=== PATIENT | male | born 1950 | race Caucasian/White ===

== ENCOUNTER 2017-01-12 12:47 | Emergency (ER) | payer MEDICARE, OTHER ==
--- NOTE | 2017-01-12 13:10 | PD ---
HPI Chief Complaint: psychiatric evaluation Time Seen by Provider: 12:55 Travel History International Travel<30 days: No Contact w/Intl Traveler<30days: No History of Present Illness HPI Patient comes in under a Garcia act by police for allegedly making suicidal statements to another hospital over the phone. Patient states he was trying to get back in with a psychiatrist he has not seen in 2 years as he feels his depression is not well-controlled currently. Patient denies any homicidal or suicidal ideation. Patient states he's been dealing with more stressors recently and that is what he feels is making his depression worse. Patient states he is on Wellbutrin 450 mg daily. Denies any other medical concerns. Denies any chest pain, shortness breath, fevers, nausea, vomiting, abdominal pain, or headaches. PFSH Past Medical History Anxiety: Yes Depression: Yes Musculoskeletal: Yes (back pain, neuropathy) Social History Alcohol Use: No (reformed 5 years) Tobacco Use: No Substance Use: Yes (marijuana occasionally) Review of Systems Except as stated in HPI: all other systems reviewed are Neg Physical Exam Narrative GENERAL: Well-developed, overly nourished, in no acute distress, and non-ill appearing. SKIN: Focused skin assessment warm and dry. HEAD: Atraumatic. Normocephalic. EYES: Pupils equal and round. EOMI. No scleral icterus. No injection or drainage. ENT: No nasal bleeding or discharge. Mucous membranes pink and moist. NECK: Trachea midline. Supple. No nuclear rigidity. CARDIOVASCULAR: Regular rate and rhythm. No murmur appreciated. RESPIRATORY: No accessory muscle use. No respiratory distress. Clear to auscultation. Breath sounds equal bilaterally. MUSCULOSKELETAL: No obvious deformities. No clubbing. No cyanosis. No edema. Full range of motion. NEUROLOGICAL: Awake and alert. No obvious cranial nerve deficits. Motor grossly within normal limits. Normal speech. PSYCHIATRIC: Appropriate mood and affect; insight and judgment normal. Data Data Last Documented VS Vital Signs Date Time Temp Pulse Resp B/P Pulse Ox O2 Delivery O2 Flow Rate FiO2 01/12/17 13:12 98.2 69 16 142/74 99 Orders Complete Blood Count With Diff (01/12/17 12:58) Comprehensive Metabolic Panel (01/12/17 12:58) Psych Screen (01/12/17 12:58) Drug Screen, Random Urine (01/12/17 12:58) Alcohol (Ethanol) (01/12/17 12:58) Salicylates (Aspirin) (01/12/17 12:58) Tylenol (Acetaminophen) (01/12/17 12:58) Labs Laboratory Tests Test 01/12/17 13:00 White Blood Count 9.3 TH/MM3 Red Blood Count 5.16 MIL/MM3 Hemoglobin 16.1 GM/DL Hematocrit 46.1 % Mean Corpuscular Volume 89.4 FL Mean Corpuscular Hemoglobin 31.1 PG Mean Corpuscular Hemoglobin 34.9 % Concent Red Cell Distribution Width 14.3 % Platelet Count 184 TH/MM3 Mean Platelet Volume 7.6 FL Neutrophils (%) (Auto) 54.5 % Lymphocytes (%) (Auto) 32.8 % Monocytes (%) (Auto) 5.9 % Eosinophils (%) (Auto) 5.6 % Basophils (%) (Auto) 1.2 % Neutrophils # (Auto) 5.1 TH/MM3 Lymphocytes # (Auto) 3.0 TH/MM3 Monocytes # (Auto) 0.5 TH/MM3 Eosinophils # (Auto) 0.5 TH/MM3 Basophils # (Auto) 0.1 TH/MM3 CBC Comment DIFF FINAL Differential Comment Sodium Level 142 MEQ/L Potassium Level 4.3 MEQ/L Chloride Level 105 MEQ/L Carbon Dioxide Level 27.0 MEQ/L Anion Gap 10 MEQ/L Blood Urea Nitrogen 15 MG/DL Creatinine 1.11 MG/DL Estimat Glomerular Filtration 66 ML/MIN Rate Random Glucose 99 MG/DL Calcium Level 9.6 MG/DL Total Bilirubin 0.5 MG/DL Aspartate Amino Transf 17 U/L (AST/SGOT) Alanine Aminotransferase 35 U/L (ALT/SGPT) Alkaline Phosphatase 92 U/L Total Protein 7.5 GM/DL Albumin 4.4 GM/DL Salicylates Level LESS THAN 1.7 MG/DL Acetaminophen Level LESS THAN 2.0 MCG/ML Ethyl Alcohol Level LESS THAN 3 MG/DL MDM Medical Decision Making Medical Screen Exam Complete: Yes Emergency Medical Condition: Yes Differential Diagnosis Homicidal, suicidal, depression, anxiety, other Narrative Course Patient was seen and examined. Labs were obtained and reviewed with the exception of urine drug screen that has not result. Patient medically cleared for further treatment and evaluation by psych. Final disposition per psych. Diagnosis Primary Impression: Depression Qualified Code: F32.9 - Depression, unspecified depression type Condition: Raman Buck January 12, 2017 13:10
[2017-01-12 13:12] VITALS: BP 142/74; PULSE 69; RESP 16; TEMP 98.2; O2SAT 99
[2017-01-12 13:31] LABS: AUTOMATED NEUTROPHIL # 5.1 TH/MM3 (1.8-7.7); BASOPHIL # 0.1 TH/MM3 (0-0.2); BASOPHIL % 1.2 % (0.0-2.0); EOSINOPHIL # 0.5 TH/MM3 (0-0.4); EOSINOPHIL % 5.6 % (0.0-4.0); HEMATOCRIT 46.1 % (39.0-51.0); HEMO FLAGS DIFF FINAL; LYMPH % 32.8 % (9.0-44.0); MEAN CELL VOLUME 89.4 FL (80.0-100.0); MEAN CORPUSCULAR HEMOGLOBIN 31.1 PG (27.0-34.0); MEAN CORPUSCULAR HGB CONC 34.9 % (32.0-36.0); MONO % 5.9 % (0.0-8.0); NEUT % 54.5 % (16.0-70.0); PLATELET COUNT 184 TH/MM3 (150-450); RED BLOOD COUNT 5.16 MIL/MM3 (4.50-5.90); RED CELL DISTRIBUTION WIDTH 14.3 % (11.6-17.2); WHITE BLOOD COUNT 9.3 TH/MM3 (4.0-11.0)
[2017-01-12 13:53] LABS: ANION GAP 10 MEQ/L (5-15); AST (GOT) 17 U/L (15-37); BLOOD UREA NITROGEN 15 MG/DL (7-18); CHLORIDE 105 MEQ/L (98-107); GLOMERULAR FILTRATION RATE 66 ML/MIN (>89); POTASSIUM 4.3 MEQ/L (3.5-5.1); SODIUM (NA) 142 MEQ/L (136-145)
[2017-01-12 13:56] LABS: ACETAMINOPHEN LESS THAN 2.0 MCG/ML (10.0-30.0); ALKALINE PHOSPHATASE 92 U/L (45-117); ALT (GPT) 35 U/L (12-78); TOTAL BILIRUBIN ADULT 0.5 MG/DL (0.2-1.0)
[2017-01-12 14:59] LABS: AMPHETAMINE, URINE NEG (NEG); BARBITURATES, URINE NEG (NEG); COCAINE, URINE NEG (NEG)
[2017-01-12] MEDS ORDERED: LYRI75CA PO (17:47)
[2017-01-12] MEDS ORDERED: WELL200T PO (17:47)
[2017-01-12] MEDS ORDERED: XANA1TAB2 PO (17:47)
[2017-01-12] MEDS ORDERED: PROP80C PO (17:47)
[2017-01-12 18:54] VITALS: BP 131/81; PULSE 66; RESP 16; O2SAT 99
[2017-01-12] MEDS ORDERED: PREGABALIN 75 MG CAP PO ONE (19:00)
[2017-01-12] MEDS ORDERED: ALPRAZolam 1 MG TAB PO ONE (19:00)
[2017-01-12 22:00] VITALS: BP 154/74; PULSE 65; RESP 18; TEMP 98.6; O2SAT 98
[2017-01-13 02:34] VITALS: BP 121/63; PULSE 64; RESP 19; TEMP 98.7; O2SAT 98
[2017-01-13 06:00] VITALS: BP 154/73; PULSE 73; RESP 17; O2SAT 96
[2017-01-13 10:19] VITALS: BP 154/73; TEMP 98.1
--- NOTE | 2017-01-13 13:05 | PD.CONS ---
Provisional Diagnosis Admission Date [place] I. Adjustment disorder with depressed mood, history of depression, cannabis use disorder, alcohol use disorder, sustained full remission [place] II. Deferred [place] III. Hypertension [place] IV. Conflicts with [place] V. 55 History of Present Illness Service Psychiatry Consult Requested By Primary Care Physician No Primary Care Physician HPI The patient is a 66-year-old man, domicile with in [place], retired, with psychiatric history of depression, no previous psychiatric admission, no previous suicidal attempts, he is on Wellbutrin 450 mg prescribed by PCP, medical history hypertension. Patient comes in under a Garcia act by police for allegedly making suicidal statements to another hospital over the phone. Patient states he was trying to get back in with a psychiatrist he has not seen in 2 years as he feels his depression is not well-controlled currently. Patient states he's been dealing with more stressors recently and that is what he feels is making his depression worse. Patient says that the reason he has been trying to get in contact with his psychiatrist is because his son is in correction due to domestic violence, and his recently traveled to [place] where she is spent $20,000 in the credit card and she cannot explain him how she did that. Mainly for this reasons he has been thinking that he has to see a psychiatrist in order to either increase his medication or adding a new medication. He called the psychiatric office and when he was told that the next appointment was 2 months he became really upset and made a suicidal statement by mistake. He says that he was just angry because he felt neglected by his psychiatrist. At this moment the patient reports improved mood, denies anxiety, denies selma, denies psychosis. He denies suicidal and homicidal ideation, he denies visual and auditory hallucinations. On longitudinal observation in the ER patient has been calm, cooperative no agitation, no aggressive behavior has been reported. Patient is oriented 3, no attention deficit, no gross cognitive impairment is present. His contacted by phone confirms the patient has been upset, she does not think that he is depressed, she feels safe taking him back home. Patient denies the use of alcohol for the last 5 years, he is still going to AA meetings every day, he reports occasional use of marijuana. Patient cannot explain why his toxicology was positive for benzodiazepine. Review of Systems Constitutional: DENIES: Diaphoretic episodes, Fatigue, Fever, Weight gain, Weight loss, Chills, Dizziness, Change in appetite, Night Sweats Endocrine: DENIES: Heat/cold intolerance, Polydipsia, Polyuria, Polyphagia Eyes: DENIES: Blurred vision, Diplopia, Eye inflammation, Eye pain, Vision loss , Photosensitivity, Double Vision Ears, nose, mouth, throat: DENIES: Tinnitus, Hearing loss, Vertigo, Nasal discharge, Oral lesions, Throat pain, Hoarseness, Ear Pain, Running Nose, Epistaxis, Sinus Pain, Toothache, Odynophagia Cardiovascular: DENIES: Chest pain, Palpitations, Syncope, Dyspnea on Exertion , PND, Lower Extremity Edema, Orthopnea, Claudication Gastrointestinal: DENIES: Abdominal pain, Black stools, Bloody stools, Constipation, Diarrhea, Nausea, Vomiting, Difficulty Swallowing, Anorexia Genitourinary: DENIES: Sexual dysfunction, Urinary frequency, Urinary incontinence, Urgency, Hematuria, Dysuria, Nocturia, Penile Discharge, Testicular Pain, Testicular Swelling Musculoskeletal: DENIES: Joint pain, Muscle aches, Stiffness, Joint Swelling, Back pain, Neck pain Integumentary: DENIES: Abnormal pigmentation, Nail changes, Pruritus, Rash Hematologic/lymphatic: DENIES: Bruising, Lymphadenopathy Immunologic/allergic: COMPLAINS OF: Eczema, Urticaria Neurologic: DENIES: Abnormal gait, Headache, Localized weakness, Paresthesias, Seizures, Speech Problems, Tremor, Poor Balance Psychiatric: DENIES: Anxiety, Confusion, Mood changes, Depression, Hallucinations, Agitation, Suicidal Ideation, Homicidal Ideation, Delusions Past Family Social History Coded Allergies: Aspirin (Verified Allergy, Intermediate, 01/12/17) Reported Medications Propranolol ER 24 HR (Inderal LA 24 HR)80 Mg Cap80 Mg PO DAILY #30 CAP Ref 0 01/12/17 Alprazolam (Xanax)1 Mg Tab1 Mg PO Q6H PRN (ANXIETY) Ref 0 01/12/17 Pregabalin (Lyrica)75 Mg Cap75 Mg PO BID #30 CAP Ref 0 01/12/17 Bupropion HCl ER 12 HR (Wellbutrin SR 12 HR)200 Mg [id number] Mg PO Q12HR Ref 0 01/12/17 Family History Grandmother was schizophrenic, he has an uncle with schizophrenia to Social History Patient was born and raised in [place], he is retired, used to work as an insurance processing clerk, he lives with his in [place], as 2 kids, his highest level of education is a master degree Patient's Strengths (min. 2) High level of education, family support Physical Exam On physical exam, no withdrawal symptoms, no EPS, no stiffness, no tremors, no psychomotor retardation or agitation present Vital Signs Vital Signs Date Time Temp Pulse Resp B/P Pulse Ox O2 Delivery O2 Flow Rate FiO2 01/13/17 10:19 98.1 73 17 154/73 98 01/13/17 06:00 Room Air Lab Results Toxicology is positive for benzodiazepines and cannabis, BAL was Mental Status Examination Appearance man, age appearing, good hygiene, [facility], calm, cooperative and pleasant Speech: Unremarkable Orientation: x3 Memory: Unremarkable Thought Process: Logical Thought Content: Unremarkable Language Fluent and spontaneous Fund of Knowledge Adequate for level of education Hallucination Type: None Attention Remarks No attention deficit present Suicidal Ideation: No Homicidal Ideation: No Previous Homicide Attempts: No Insight: Good Affect: Good Mood: Appropriate Motor Activity: Normal gait Assessment & Plan Problem List: (1) Adjustment disorder with depressed mood Assessment & Plan: At the moment of this evaluation the patient does not present any acute symptomatology of depression, anxiety, selma or psychosis. Patient denies suicidal and homicidal ideation. Patient denies visual and auditory hallucinations. On longitudinal observation no agitation, no aggressive behavior reported. Patient is logical, coherent and relevant. Recent suicidal statements seems to be the result of anger and frustration, rather than a major primary psychiatric condition decompensation. He does not meet criteria for psychiatric admission at this moment. He can continue his psychiatric care as an outpatient. Extensive support, motivation and psychoeducation provided. 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 Patient and , both, agree with plan. Garcia act would be lifted.. ICD Code: F43.21 Assessment & Plan Estimated LOS: Norman Ray MD January 13, 2017 13:05
== END 2017-01-13 09:40 | disposition home or self-care (01) ==
LOC: NEPD 12:47 → NEPJ 01-13 09:40
DX: F32.9 Major depressive disorder, single episode, unspecified (principal); F43.21 Adjustment disorder with depressed mood; Z86.59 Personal history of other mental and behavioral disorders; Z87.39 Personal history of other diseases of the musculoskeletal system and connective tissue
CPT/HCPCS: 80053; 80307; 85025; 99285